=== PATIENT | male | born 1940 | race Two or more races ===

== ENCOUNTER 2017-07-16 23:22 | Inpatient (IN) | payer MEDICARE, OTHER ==
[~2017-07-16] VITALS: Ht 182.9 cm; Wt 103.1 kg
[2017-07-16] MEDS ORDERED: ACETAMINOPHEN 325 MG TAB PO ONE (23:45)
[2017-07-17] MEDS ORDERED: ACETAMINOPHEN 325 MG TAB PO ONE
[2017-07-17 00:48] LABS: Basophils # (auto) 0 uL; Basophils % (auto) 0.2 % (0.0-2.0); Eosinophils # (auto) 0 uL; Eosinophils % (auto) 0.8 % (0.0-7.0); Hematocrit 43.3 % (41.0-53.0); Hemoglobin 14.7 g/dL (13.5-17.5); Lymphocytes # (auto) 0.2 uL; Lymphocytes % (auto) 4.3 % (10.0-50.0); Mean Corpuscular Hemoglobin 31.3 pg (28.0-32.0); Monocytes # (auto) 0.3 uL; Monocytes % (auto) 5.7 % (0.0-12.0); Nucleated Red Blood Cells % 0.1 %; Platelet Count (auto) 123 10^3/uL (140-450); Red Blood Cells 4.71 10^6/uL (4.5-5.90); Red Cell Distribution Width 14.3 % (11.8-14.3); White Blood Cell 4.5 10^3/uL (4.4-10.8)
[2017-07-17 01:06] LABS: Albumin 3.4 g/dL (3.4-5.0); BUN/Creatinine Ratio 12.8; Magnesium 2.2 mg/dL (1.6-2.6); Potassium 3.3 mmol/L (3.5-5.1)
[2017-07-17 01:09] LABS: Total Protein 6.9 g/dL (6.4-8.2)
[2017-07-17 02:18] LABS: Urine Bacteria NONE SEEN /hpf (None Seen); Urine Blood 2+ /uL (Negative); Urine Mucus FEW (None Seen); Urine WBC 1 /hpf (0 - 3)
[2017-07-17] MEDS ORDERED: LEVOFLOXACIN 500MG 100 ML IV ONE (08:00)
[2017-07-17] MEDS ORDERED: ASPirin 81 mg TAB PO ONE (09:15)
[2017-07-17] MEDS ORDERED: cefTRIAXone 1GM/10ml IVPUSH 10 ML IV ONE (11:15)
[2017-07-17] MEDS ORDERED: FUROSEMIDE 40 MG/4 ML VIAL IV ONE (11:15)
[2017-07-17] MEDS: methylPREDNISolone SOD SUCC 40 MG/ML VL IV SCH ×2 (11:30→23:31)
[2017-07-17] MEDS ORDERED: NITROGLYCERIN 0.4 MG SL TAB SL PRN (11:30)
[2017-07-17] MEDS ORDERED: LACTULOSE 20Gm/30ML SOLN PO PRN (11:30)
[2017-07-17] MEDS ORDERED: MORPHINE SULF INJ 2 MG/ML SYRINGE 1ML IV PRN (11:30)
[2017-07-17] MEDS ORDERED: POTASSIUM CHL 10 Meq TABLET PO ONE (11:30)
[2017-07-17] MEDS ORDERED: HYDROcodone-ACET 5/325MG TAB PO PRN (11:30)
[2017-07-17] MEDS ORDERED: ALBUTEROL SULF 2.5 MG/0.5ML(0.5%) NEB SOLN NEB SCH (12:00)
[2017-07-17] MEDS: IPRATROPIUM BROM 0.5 MG/2.5ML INH SOL NEB SCH ×3 (12:32→22:54)
[2017-07-17 14:51] VITALS: BP 152/97
[2017-07-17] MEDS: TAMSULOSIN HYDROCHLORIDE 0.4 MG CAP PO SCH ×2 (18:00→18:26)
[2017-07-17] MEDS: FUROSEMIDE 40 MG/4 ML VIAL IV SCH (18:02)
[2017-07-17] MEDS: ALBUTEROL SULF 2.5 MG/0.5ML(0.5%) NEB SOLN NEB SCH ×2 (18:44→22:54)
[2017-07-17 21:00] VITALS: BP 151/80
[2017-07-17 22:00] VITALS: BP 135/97
[2017-07-17] MEDS: ATORVASTATIN 20 MG TAB PO SCH (22:03)
[2017-07-17] MEDS: CARVEDILOL 3.125 MG TAB PO SCH (22:04)
[2017-07-17] MEDS ORDERED: CARV6.2551 PO (23:50)
[2017-07-17] MEDS ORDERED: TAMS0.4C36 PO (23:50)
[2017-07-17] MEDS ORDERED: POTA20TA53 PO (23:50)
[2017-07-17] MEDS ORDERED: VALS160T53 PO (23:50)
[2017-07-17] MEDS ORDERED: ATOR20TA50 PO (23:50)
[2017-07-17] MEDS ORDERED: OMEP20CA74 PO (23:50)
[2017-07-17] MEDS ORDERED: AMLO5TAB2 PO (23:50)
[2017-07-17] MEDS ORDERED: DIGO50SO2 PO (23:50)
[2017-07-17] MEDS ORDERED: ASPI81TA27 PO (23:50)
[2017-07-17] MEDS ORDERED: HYDR-4683 PO (23:50)
[2017-07-18] MEDS: ALBUTEROL SULF 2.5 MG/0.5ML(0.5%) NEB SOLN NEB SCH ×6 (02:41→22:05)
[2017-07-18] MEDS: IPRATROPIUM BROM 0.5 MG/2.5ML INH SOL NEB SCH ×6 (02:41→22:05)
[2017-07-18 05:00] VITALS: BP 118/66
[2017-07-18 05:34] LABS: Basophils # (auto) 0 uL; Basophils % (auto) 0.1 % (0.0-2.0); Eosinophils # (auto) 0 uL; Hematocrit 41.6 % (41.0-53.0); Hemoglobin 14.3 g/dL (13.5-17.5); Lymphocytes # (auto) 0.1 uL; Mean Corpuscular Hemoglobin 31.8 pg (28.0-32.0); Mean Corpuscular Hgb Conc. 34.4 g/dL (32.0-36.0); Mean Corpuscular Volume 92.5 fL (80.0-100.0); Monocytes # (auto) 0.2 uL; Neutrophils % (auto) 94.9 % (37.0-80.0); Nucleated Red Blood Cells % 0.1 %; Platelet Count (auto) 136 10^3/uL (140-450); Red Cell Distribution Width 14.2 % (11.8-14.3); White Blood Cell 6.3 10^3/uL (4.4-10.8)
[2017-07-18] MEDS: FUROSEMIDE 40 MG/4 ML VIAL IV SCH (05:43)
[2017-07-18 06:09] LABS: Albumin 2.9 g/dL (3.4-5.0); BUN/Creatinine Ratio 24.5; Bilirubin, Total 0.9 mg/dL (0.2-1.0); Calcium 8.1 mg/dL (8.5-10.1); Potassium 3.2 mmol/L (3.5-5.1); Total Protein 6.9 g/dL (6.4-8.2)
[2017-07-18 09:00] VITALS: BP 122/73
[2017-07-18] MEDS ORDERED: cefTRIAXone 1GM/10ml IVPUSH 10 ML IV SCH (09:00)
[2017-07-18] MEDS ORDERED: amLODIPine BESYLATE 5 MG TAB PO SCH (10:00)
[2017-07-18] MEDS ORDERED: PANTOPRAZOLE 40 MG/10 ML VIAL IV SCH (10:00)
[2017-07-18] MEDS ORDERED: HCTZ 25 MG TAB PO SCH (10:00)
[2017-07-18] MEDS ORDERED: ENALAPRIL MALEATE 2.5 MG TAB PO SCH (10:00)
[2017-07-18] MEDS ORDERED: ENOXAPARIN SOD 30 MG/0.3 ML SYRINGE SC SCH (10:00)
[2017-07-18] MEDS: LEVOFLOXACIN 500MG 100 ML IV SCH (10:20)
[2017-07-18] MEDS: VALSARTAN 80 MG TAB PO SCH (10:21)
[2017-07-18] MEDS: POTASSIUM CHL 20 Meq TABLET PO SCH (10:21)
[2017-07-18] MEDS: CARVEDILOL 3.125 MG TAB PO SCH ×2 (10:21→21:34)
[2017-07-18] MEDS: ASPirin 81 mg TAB PO SCH (10:22)
[2017-07-18] MEDS: DIGOXIN 0.125 MG TAB PO SCH (10:26)
[2017-07-18] MEDS: methylPREDNISolone SOD SUCC 40 MG/ML VL IV SCH ×2 (11:28→23:46)
[2017-07-18 13:00] VITALS: BP 136/73
[2017-07-18] MEDS ORDERED: MORPHINE SULFATE 4 MG/ML SYR/VIAL IV PRN (15:00)
[2017-07-18] MEDS ORDERED: POTASSIUM CHL 20 Meq TABLET PO ONE (15:00)
[2017-07-18] MEDS ORDERED: OSELTAMIVIR 75 MG CAP PO ONE (15:00)
[2017-07-18] MEDS: TAMSULOSIN HYDROCHLORIDE 0.4 MG CAP PO SCH (18:24)
[2017-07-18] MEDS: ATORVASTATIN 20 MG TAB PO SCH (21:33)
[2017-07-18] MEDS: OSELTAMIVIR 75 MG CAP PO SCH (21:34)
[2017-07-18 22:00] VITALS: BP 157/74
[2017-07-19] MEDS: ALBUTEROL SULF 2.5 MG/0.5ML(0.5%) NEB SOLN NEB SCH ×6 (02:15→22:46)
[2017-07-19] MEDS: IPRATROPIUM BROM 0.5 MG/2.5ML INH SOL NEB SCH ×6 (02:15→22:46)
[2017-07-19 04:47] VITALS: BP 137/63
[2017-07-19 06:01] LABS: Basophils # (auto) 0 uL; Basophils % (auto) 0.1 % (0.0-2.0); Eosinophils # (auto) 0 uL; Hematocrit 43.3 % (41.0-53.0); Hemoglobin 14.5 g/dL (13.5-17.5); Lymphocytes # (auto) 0.2 uL; Lymphocytes % (auto) 2.9 % (10.0-50.0); Mean Corpuscular Hemoglobin 31.2 pg (28.0-32.0); Mean Corpuscular Hgb Conc. 33.5 g/dL (32.0-36.0); Mean Corpuscular Volume 93.1 fL (80.0-100.0); Monocytes # (auto) 0.2 uL; Monocytes % (auto) 3.1 % (0.0-12.0); Neutrophils # (auto) 7.4 uL; Neutrophils % (auto) 93.9 % (37.0-80.0); Nucleated Red Blood Cells % 0.3 %; Platelet Count (auto) 166 10^3/uL (140-450); Red Blood Cells 4.66 10^6/uL (4.5-5.90); Red Cell Distribution Width 14.2 % (11.8-14.3); White Blood Cell 7.9 10^3/uL (4.4-10.8)
[2017-07-19 06:15] LABS: BUN/Creatinine Ratio 33.3; Calcium 8.3 mg/dL (8.5-10.1); Magnesium 2.6 mg/dL (1.6-2.6); Potassium 3.7 mmol/L (3.5-5.1)
[2017-07-19 08:11] VITALS: BP 128/70
[2017-07-19] MEDS: OSELTAMIVIR 75 MG CAP PO SCH ×2 (10:00→21:44)
[2017-07-19] MEDS: ASPirin 81 mg TAB PO SCH (10:22)
[2017-07-19] MEDS: LEVOFLOXACIN 500MG 100 ML IV SCH (10:22)
[2017-07-19] MEDS: DIGOXIN 0.125 MG TAB PO SCH (10:23)
[2017-07-19] MEDS: POTASSIUM CHL 20 Meq TABLET PO SCH (10:23)
[2017-07-19] MEDS: FUROSEMIDE 40 MG TAB PO SCH (10:24)
[2017-07-19] MEDS: VALSARTAN 80 MG TAB PO SCH (10:24)
[2017-07-19] MEDS: CARVEDILOL 3.125 MG TAB PO SCH ×2 (10:24→21:44)
[2017-07-19 11:45] VITALS: BP 110/54
[2017-07-19] MEDS: methylPREDNISolone SOD SUCC 40 MG/ML VL IV SCH (14:26)
[2017-07-19 16:41] VITALS: BP 135/72
[2017-07-19] MEDS: TAMSULOSIN HYDROCHLORIDE 0.4 MG CAP PO SCH (18:18)
[2017-07-19] MEDS: ATORVASTATIN 20 MG TAB PO SCH (21:44)
[2017-07-19 22:00] VITALS: BP 114/60
[2017-07-20] MEDS: methylPREDNISolone SOD SUCC 40 MG/ML VL IV SCH (00:33)
[2017-07-20] MEDS: ALBUTEROL SULF 2.5 MG/0.5ML(0.5%) NEB SOLN NEB SCH ×2 (02:42→07:34)
[2017-07-20] MEDS: IPRATROPIUM BROM 0.5 MG/2.5ML INH SOL NEB SCH ×5 (02:42→20:41)
[2017-07-20 05:00] VITALS: BP 124/75
[2017-07-20 08:10] VITALS: BP 124/75
[2017-07-20 09:00] VITALS: BP 144/68
[2017-07-20] MEDS ORDERED: MORPHINE SULFATE 10 MG/ML INJ 1ML SDV IV PRN (09:30)
[2017-07-20] MEDS: OSELTAMIVIR 75 MG CAP PO SCH (10:00)
[2017-07-20] MEDS: POTASSIUM CHL 20 Meq TABLET PO SCH (10:23)
[2017-07-20] MEDS: VALSARTAN 80 MG TAB PO SCH (10:24)
[2017-07-20] MEDS: LEVOFLOXACIN 500MG 100 ML IV SCH (10:24)
[2017-07-20] MEDS: ASPirin 81 mg TAB PO SCH (10:24)
[2017-07-20] MEDS: CARVEDILOL 3.125 MG TAB PO SCH (10:25)
[2017-07-20] MEDS: DIGOXIN 0.125 MG TAB PO SCH (10:25)
[2017-07-20] MEDS: FUROSEMIDE 40 MG TAB PO SCH (10:25)
[2017-07-20 13:00] VITALS: BP 129/69
[2017-07-20] MEDS ORDERED: FUROSEMIDE 40 MG/4 ML VIAL IV ONE (14:00)
[2017-07-20] MEDS ORDERED: POTASSIUM CHL 20 Meq TABLET PO ONE (14:00)
[2017-07-20 17:00] VITALS: BP 124/63
[2017-07-20] MEDS ORDERED: ALBUTEROL SULF 2.5 MG/0.5ML(0.5%) NEB SOLN NEB SCH (18:00)
[2017-07-20] MEDS: predniSONE 20 MG TAB PO SCH (18:13)
[2017-07-20] MEDS: TAMSULOSIN HYDROCHLORIDE 0.4 MG CAP PO SCH (18:13)
[2017-07-20 22:00] VITALS: BP 139/73
[2017-07-20] MEDS: ATORVASTATIN 20 MG TAB PO SCH (22:17)
[2017-07-20] MEDS: CARVEDILOL 12.5 MG TAB PO SCH (22:18)
[2017-07-20] MEDS ORDERED: IPRATROPIUM BROM 0.5 MG/2.5ML INH SOL NEB PRN (22:30)
[2017-07-20] MEDS ORDERED: ALBUTEROL SULF 2.5 MG/0.5ML(0.5%) NEB SOLN NEB PRN (22:30)
[2017-07-21 05:00] VITALS: BP 116/67
[2017-07-21 09:00] VITALS: BP 131/68
[2017-07-21] MEDS ORDERED: OSELTAMIVIR 75 MG CAP PO SCH (10:00)
[2017-07-21] MEDS: predniSONE 20 MG TAB PO SCH (12:12)
[2017-07-21] MEDS: ASPirin 81 mg TAB PO SCH (12:12)
[2017-07-21] MEDS: LEVOFLOXACIN 500MG 100 ML IV SCH (12:12)
[2017-07-21] MEDS: CARVEDILOL 12.5 MG TAB PO SCH (12:15)
[2017-07-21] MEDS: POTASSIUM CHL 20 Meq TABLET PO SCH (12:16)
[2017-07-21] MEDS: VALSARTAN 80 MG TAB PO SCH (12:16)
[2017-07-21] MEDS: DIGOXIN 0.125 MG TAB PO SCH (12:22)
[2017-07-21] MEDS: FUROSEMIDE 40 MG TAB PO SCH (12:23)
[2017-07-21 13:00] VITALS: BP 119/61
[2017-07-21 16:47] VITALS: BP 123/72
[2017-07-21] MEDS: TAMSULOSIN HYDROCHLORIDE 0.4 MG CAP PO SCH (18:47)
[2017-07-21 19:42] VITALS: BP 123/72
== END 2017-07-21 20:15 | disposition home or self-care (01) | DRG 871 ==
LOC: ER 23:27 → TELE 23:28 → TELE-WESTW 07-17 19:55
PROVIDERS: ADMIT Family Medicine; ATTEND Internal Medicine
DX: A41.9 Sepsis, unspecified organism (principal); I50.23 Acute on chronic systolic (congestive) heart failure; E44.0 Moderate protein-calorie malnutrition; I42.9 Cardiomyopathy, unspecified; I11.0 Hypertensive heart disease with heart failure; J18.1 Lobar pneumonia, unspecified organism; J44.0 Chronic obstructive pulmonary disease with (acute) lower respiratory infection; J44.1 Chronic obstructive pulmonary disease with (acute) exacerbation; E78.5 Hyperlipidemia, unspecified; Z86.718 Personal history of other venous thrombosis and embolism; I25.10 Atherosclerotic heart disease of native coronary artery without angina pectoris; Z79.82 Long term (current) use of aspirin; Z79.899 Other long term (current) drug therapy; Z68.30 Body mass index [BMI] 30.0-30.9, adult
CPT/HCPCS: 36415; 71010; 71020; 80048; 80053; 81001; 83605; 83735; 83880; 84484; 85025; 85379; 87040; 87400; 93005; 93306; 94640; 94761; 96365; 96367; 96375; C9113; J1956